=== PATIENT | female | born 1985 | race Caucasian/White ===

== ENCOUNTER 2018-09-24 09:16 | Emergency (ER) | payer MEDICAID ==
[2018-09-24] MEDS ORDERED: Tetracaine 0.5% Ophth Soln 15 mL Soln RIGHT EYE ONE (09:43)
[2018-09-24] MEDS ORDERED: Fluorescein Sodium 1 mg Ophth Strip RIGHT EYE ONE (09:44)
[2018-09-24] MEDS ORDERED: Dacriose Ophth Soln 120 mL Bottle RIGHT EYE ONE (09:44)
[2018-09-24] MEDS ORDERED: Fluorescein Sodium 1 mg Ophth Strip ONE (09:50)
[2018-09-24] MEDS ORDERED: TETRACAINE HCL 0.5% OPHTH SOLN 4ML BOTTLE ONE (09:50)
[2018-09-24] MEDS ORDERED: Dacriose Ophth Soln 120 mL Bottle ONE (09:50)
--- NOTE | 2018-09-24 10:36 | ED Physician Chart ---
ED Chief Complaint/HPI - Patient Information Date Seen:: 09/24/18 Time Seen:: 09:24 Chief Complaint:: painful right eye from dry eyes History of Present Illness:: c/o painful and dry eye, Right, since this morning. States has history of dry eyes and pain. positive R eye foreign body sensation. Allergies:: Allergies Allergy/AdvReac Type Severity Reaction Status Date / Time No Known Allergies Allergy Verified 09/24/18 09:22 Vitals:: Vital Signs - 8 hr 09/24/18 09:24 Temp 98.0 F HR 79 RR 18 BP 131/57 O2 Sat % 98 Historian:: Patient Review:: Nurse's Note Reviewed ED Review of Systems - Review of Systems General/Constitutional: No fever, No chills, No weight loss, No weakness, No diaphoresis, No edema, No loss of appetite Skin: No skin lesions, No rash, No bruising Head: No headache, No light-headedness Eyes: Pain ENT: No earache, No nasal drainage, No sore throat, No tinnitus Neck: No neck pain, No swelling, No thyromegaly, No stiffness, No mass noted Cardio Vascular: No chest pain, No palpitations, No PND, No orthopnea, No edema Pulmonary: No SOB, No cough, No sputum, No wheezing GI: No nausea, No vomiting, No diarrhea, No pain, No melena, No hematochezia, No constipation, No hematemesis G/U: No dysuria, No frequency, No hematuria Musculoskeletal: No bone or joint pain, No back pain, No muscle pain Endocrine: No polyuria, No polydipsia Psychiatric: No prior psych history, No depression, No anxiety, No suicidal ideation Hematopoietic: No bruising, No lymphadenopathy Allergic/Immuno: No urticaria, No angioedema Neurological: No syncope, No focal symptoms, No weakness, No paresthesia, No headache, No seizure, No dizziness, No confusion, No vertigo ED Past Medical History - Past Medical History Obtainable: Yes Past Medical History: Other (dry eyes) Family Medical History - Family Member Mother History Unknown: Yes ED Physical Exam - Physical Examination General/Constitutional: Awake, Well-developed, well-nourished, Alert, GCS 15, Non-toxic appearing, Ambulatory Other Gen/Cons comments:: painful R eye Head: Atraumatic Eyes: PERRL, EOMI Other Eyes comments:: minimally to no injection of sclera on right. Fluorescin negative for uptake. Right eye is more prominent than the left and her dry eye problems have been on the right. Could she have Grave's disease? Eyelids everted: no foreign bodies. Conjunctiva slightly injected. Skin: Nl inspection, No rash, No skin lesions, No ecchymosis, Well hydrated, No lymphadenopathy ENMT: External ears, nose nl Neck: Nontender, No nuchal rigidity, No stridor Neuro/Psych: Alert/oriented, Normal sensory exam, Normal motor strength, No focal deficits ED Assessment - Assessment General Assessment: patient refused Toradol injection. ED Septic Shock - . Is Septic Shock (SBP<90, OR Lactate>4 mmol\L) present?: No - <6hrs of presentation: Vital Signs: Vital Signs - 8 hr 09/24/18 09:24 Temp 98.0 F HR 79 RR 18 BP 131/57 O2 Sat % 98 ED Reassessment (Disposition) - Reassessment Reassessment Condition:: Improved - Diagnosis Diagnosis:: Right eye pain secondary to dry eyes. 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 - Aftercare/Follow up Instructions Aftercare/Follow-Up Instructions:: Refer to Discharge Instructions Notes:: follow up with eye doctor within a day. Medication Prescribed:: Maxitrol Lacrilube. - Patient Disposition Discharge/Transfer:: Home Condition at Disposition:: Stable, Improved
== END 2018-09-24 10:50 | disposition home or self-care (01) ==
LOC: ER 09:16 → EDBD 09:16 → ER 10:50
DX: H57.11 Ocular pain, right eye (principal); H57.89 Other specified disorders of eye and adnexa
CPT/HCPCS: Z7502